=== PATIENT | male | born 1995 | race Caucasian/White ===

== ENCOUNTER 2023-03-29 05:55 | Emergency (ER) | payer OTHER ==
[~2023-03-29] VITALS: Ht 172.7 cm; Wt 65.0 kg
[2023-03-29] MEDS ORDERED: NS IV 1000 ML 1,000 ML IV STA (06:00)
[2023-03-29 06:05] VITALS: BP 147/102
--- NOTE | 2023-03-29 06:16 | ED General ---
General Stated Complaint: N Source of Information: Patient, EMS Exam Limitations: No Limitations History of Present Illness Date Seen by Provider: Mar 29, 2023 Time Seen by Provider: 05:55 Initial Comments Here by EMS with report of 4 days of methamphetamine abuse/use. He is quite animated. He denies suicidal or homicidal ideation. States he believes he is dehydrated due to the significant amount of use that he has had. He reports that somebody dropped him off at [employer] [facility] [employer] and he was actually trying to get here. Does seem to be talking to somebody that is not in the room. He is irritated that the person is accusing him of being a child molester. Timing/Duration: 2-3 Days Severity: Moderate Associated Systoms: No Cough, No Fever/Chills, No Nausea/Vomiting, No Shortness of Air, No Weakness Allergies and Home Medications Allergies Coded Allergies: No Known Drug Allergies (Unverified , 01/29/14) Patient Home Medication List Home Medication List Reviewed: Yes Review of Systems Review of Systems Constitutional: see HPI; No chills, No fever EENTM: No nose congestion, No throat pain Respiratory: No cough, No short of breath Cardiovascular: No chest pain, No edema Gastrointestinal: No nausea, No vomiting Genitourinary: no symptoms reported Musculoskeletal: no symptoms reported Psychiatric/Neurological: Anxiety, Emotional Problems Past Wufmbhv-Hvljpc-Ehwdlr Hx Patient Social History Tobacco Use?: Yes Substance use?: Yes Substance type: Methamphetamine Alcohol Use?: Yes Alcohol Frequency: Once in a while Immunizations Up To Date Tetanus Booster (TDap): Unknown Past Medical History Surgeries: No Respiratory: Yes Asthma Reproductive Disorders: No Loss of Vision: Denies Hearing Impairment: Denies Depression Family Medical History Reviewed and Corrections made No Pertinent Family Hx Physical Exam Vital Signs Vital Signs - First Documented 03/29/23 06:05 Temp 36.8 Pulse 115 Resp 20 B/P (MAP) 147/102 (117) Pulse Ox 99 Capillary Refill : Height, Weight, BMI Height: 5'10.00" Weight: 128lbs. 4.3oz. 58.010123iq; BMI Method:Stated General Appearance: WD/WN, Anxious, Mild Distress HEENT: PERRL/EOMI, Pharynx Normal Neck: Non Tender, Supple Respiratory: Lungs Clear, Normal Breath Sounds Cardiovascular: No Murmur, Tachycardia Back: Normal Inspection, No CVA Tenderness, No Vertebral Tenderness Extremity: Normal Range of Motion, Non Tender Neurologic/Psychiatric: Alert, Oriented x3 Skin: Normal Color, Warm/Dry Progress/Results/Core Measures Suspected Sepsis SIRS Temperature: Pulse: Respiratory Rate: Laboratory Tests 03/29/23 06:30: White Blood Count 15.3H Blood Pressure / Mean: Laboratory Tests 03/29/23 06:30: Creatinine 1.09, Platelet Count 307, Total Bilirubin 0.6 Results/Orders Lab Results Laboratory Tests Test 03/29/23 06:30 Range/Units White Blood Count 15.3 H 4.3-11.0 10^3/uL Red Blood Count 5.48 4.30-5.52 10^6/uL Hemoglobin 16.9 13.3-17.7 g/dL Hematocrit 47 40-54 % Mean Corpuscular Volume 85 80-99 fL Mean Corpuscular Hemoglobin 31 25-34 pg Mean Corpuscular Hemoglobin Concent 36 32-36 g/dL Red Cell Distribution Width 11.3 10.0-14.5 % Platelet Count 307 130-400 10^3/uL Mean Platelet Volume 10.3 9.0-12.2 fL Immature Granulocyte % (Auto) 1 % Neutrophils (%) (Auto) 77 H 42-75 % Lymphocytes (%) (Auto) 12 12-44 % Monocytes (%) (Auto) 9 0-12 % Eosinophils (%) (Auto) 0 0-10 % Basophils (%) (Auto) 1 0-10 % Neutrophils # (Auto) 11.9 H 1.8-7.8 10^3/uL Lymphocytes # (Auto) 1.9 1.0-4.0 10^3/uL Monocytes # (Auto) 1.4 H 0.0-1.0 10^3/uL Eosinophils # (Auto) 0.0 0.0-0.3 10^3/uL Basophils # (Auto) 0.1 0.0-0.1 10^3/uL Immature Granulocyte # (Auto) 0.1 0.0-0.1 10^3/uL Neutrophils % (Manual) 83 % Lymphocytes % (Manual) 13 % Monocytes % (Manual) 4 % Microcytosis SLIGHT Blood Morphology Comment Sodium Level 141 135-145 MMOL/L Potassium Level 3.4 L 3.6-5.0 MMOL/L Chloride Level 104 98-107 MMOL/L Carbon Dioxide Level 22 21-32 MMOL/L Anion Gap 15 H 5-14 MMOL/L Blood Urea Nitrogen 18 7-18 MG/DL Creatinine 1.09 0.60-1.30 MG/DL Estimat Glomerular Filtration Rate 95 BUN/Creatinine Ratio 17 Glucose Level 102 70-105 MG/DL Calcium Level 9.4 8.5-10.1 MG/DL Corrected Calcium 8.5-10.1 MG/DL Total Bilirubin 0.6 0.1-1.0 MG/DL Aspartate Amino Transf (AST/SGOT) 55 H 5-34 U/L Alanine Aminotransferase (ALT/SGPT) 33 0-55 U/L Alkaline Phosphatase 83 40-136 U/L Total Protein 7.3 6.4-8.2 GM/DL Albumin 4.6 H 3.2-4.5 GM/DL My Orders Orders - BASHIR CARRASCO MD Cbc And Automated Diff (03/29/23 06:00) Comprehensive Metabolic Panel (03/29/23 06:00) Ns Iv 1000 Ml (Ns Iv 1000 Ml) (03/29/23 06:00) Ed Iv/Invasive Line Start (03/29/23 06:00) Manual Differential (03/29/23 06:30) Lorazepam Injection (Lorazepam Injection (03/29/23 07:15) Lorazepam Injection (Lorazepam Injection (03/29/23 07:06) Vital Signs/I&O 03/29/23 06:05 Temp 36.8 Pulse 115 Resp 20 B/P (MAP) 147/102 (117) Pulse Ox 99 Capillary Refill : Progress Note : Progress Note Seen and evaluated. IV, labs including CBC and CMP ordered. Normal saline 1 L bolus. Did offer Zyprexa for anxiousness which the patient declined. I offered Ativan and he accepted. Differential diagnosis includes methamphetamine abuse, acute psychosis secondary to methamphetamine abuse, electrolyte abnormality, dehydration Patient got approximately 500 mL of IV fluid before he pulled out his IV and states that he would just like to go. He did not get any Ativan. Labs reviewed and patient has slightly elevated white count without significant left shift whi ch is likely secondary to dehydration and methamphetamine abuse. Chemistries reviewed and grossly normal without significant abnormality and normal creatinine noted. Patient left AGAINST MEDICAL ADVICE and instructed to return for any concerns. Departure Impression Primary Impression: Methamphetamine abuse Disposition: 07 AGAINST MEDICAL ADVICE Condition: Stable/Unchanged Departure-Patient Inst. Decision time for Depature: 07:30 Referrals: [facility] [place] (PCP/Family) Primary Care Physician Patient Instructions: Leaving Against Medical Advice BASHIR CRARASCO MD Mar 29, 2023 06:16
[2023-03-29 06:46] LABS: BASOPHILS # (AUTO) 0.1 10^3/uL (0.0-0.1); BASOPHILS % (AUTO) 1 % (0-10); EOSINOPHILS % (AUTO) 0 % (0-10); HEMATOCRIT 47 % (40-54); HEMOGLOBIN 16.9 g/dL (13.3-17.7); LYMPHOCYTES # (AUTO) 1.9 10^3/uL (1.0-4.0); LYMPHOCYTES % (AUTO) 12 % (12-44); MEAN CORPUSCULAR HEMOGLOBIN 31 pg (25-34); MEAN CORPUSCULAR HGB CONC 36 g/dL (32-36); MEAN CORPUSCULAR VOLUME 85 fL (80-99); MEAN PLATELET VOLUME 10.3 fL (9.0-12.2); MONOCYTES # (AUTO) 1.4 10^3/uL (0.0-1.0); MONOCYTES % (AUTO) 9 % (0-12); NEUTROPHILS # (AUTO) 11.9 10^3/uL (1.8-7.8); NEUTROPHILS % (AUTO) 77 % (42-75); PLATELET COUNT 307 10^3/uL (130-400); WHITE BLOOD COUNT 15.3 10^3/uL (4.3-11.0)
[2023-03-29 06:57] LABS: ALBUMIN 4.6 GM/DL (3.2-4.5); CHLORIDE 104 MMOL/L (98-107); POTASSIUM 3.4 MMOL/L (3.6-5.0); SODIUM 141 MMOL/L (135-145)
[2023-03-29 06:58] LABS: CALCIUM 9.4 MG/DL (8.5-10.1)
[2023-03-29 07:00] LABS: GLUCOSE 102 MG/DL (70-105); TOTAL PROTEIN 7.3 GM/DL (6.4-8.2)
[2023-03-29 07:01] LABS: BILIRUBIN,TOTAL 0.6 MG/DL (0.1-1.0); CARBON DIOXIDE 22 MMOL/L (21-32)
[2023-03-29 07:03] LABS: ALKALINE PHOSPHATASE 83 U/L (40-136); CREATININE SERUM 1.09 MG/DL (0.60-1.30); GFR ESTIMATED 95
[2023-03-29 07:04] LABS: BUN/CREATININE RATIO 17
[2023-03-29 07:06] LABS: ALANINE AMINOTRANSFERASE 33 U/L (0-55)
[2023-03-29 07:18] LABS: LYMPHOCYTES % (MANUAL) 13 %; MICROCYTOSIS SLIGHT; MONOCYTES % (MANUAL) 4 %; NEUTROPHILS % (MANUAL) 83 %
== END 2023-03-29 07:10 | disposition left against medical advice (07) ==
LOC: EDUNIT# 05:55 → ER 05:56
DX: F15.10 Other stimulant abuse, uncomplicated (principal)
CPT/HCPCS: 36415; 80053; 85007; 85027